=== PATIENT | female | born 1955 | race Caucasian/White ===

== ENCOUNTER 2017-06-12 16:03 | Emergency (ER) | payer MEDICARE, BC ==
[~2017-06-12] VITALS: Ht 167.6 cm; Wt 81.6 kg
--- NOTE | 2017-06-12 17:10 | NUR ---
Patient discharged to home in stable conditon. Written and verbal after care instructions given. Patient verbalizes understanding of instructions.
== END 2017-06-12 17:11 | disposition home or self-care (01) ==
LOC: ER 16:05
DX: M25.531 Pain in right wrist (principal); M85.80 Other specified disorders of bone density and structure, unspecified site
CPT/HCPCS: 73110; A4663